=== PATIENT | male | born 1955 | race Caucasian/White ===

== ENCOUNTER 2025-03-18 10:09 | Outpatient (AMB) | payer MEDICARE, MEDICAID, SELFPAY ==
[2025-03-18 10:24] VITALS: BP 159/77; PULSE 84; RESP 18; TEMP 36.5; O2SAT 94; BMI 36.6
--- NOTE | 2025-03-18 10:24 | GSCOFFNT_ITS ---
Vital Signs - [facility] 03/18/25 10:24 Height 1.96 m Height Method Stated Weight 139.848 kg Weight Measurement Method Standing Scale BMI 36.6 BP 159/77 H Blood Pressure Source Automatic Cuff Blood Pressure Location Left Upper Arm Position Sitting Respiration 18 Pulse 84 Pulse Source Monitor Temp 97.7 F Temp Source Temporal Artery Scan Pulse Oximetry (%) 94 L Oxygen Delivery Method Room Air Med/Allergies Allergies & Medications Allergies No Known Allergies Allergy (Verified 03/18/25 10:25) Medication Reconciliation Levothyroxine * (SYNTHROID *) 175 mcg PO QDAY 6 months #300 tabs 10/31/23 [Rx Confirmed 03/18/25] atorvastatin 20 mg tablet 20 mg PO HS 90 days #90 tabs 10/31/23 [Rx Confirmed 03/18/25] blood sugar diagnostic (Contour Next Test Strips) #70 ea 10/31/23 [Rx Confirmed 03/18/25] blood-glucose meter (Contour Next EZ Meter kit) #1 ea 10/31/23 [Rx Confirmed 03/18/25] cholecalciferol (vitamin D3) 25 mcg (1,000 unit) tablet 2,000 iu PO QDAY 90 days #90 tabs 10/31/23 [Rx Confirmed 03/18/25] ferrous sulfate 325 mg (65 mg iron) tablet,delayed release 325 mg PO QOD 90 days #45 tabs 10/31/23 [Rx Confirmed 03/18/25] lancets 28 gauge (Comfort EZ Lancets) #100 ea 10/31/23 [Rx Confirmed 03/18/25] metformin 1,000 mg tablet 1,000 mg PO BID 90 days #180 tabs 10/31/23 [Rx Confirmed 03/18/25] tamsulosin 0.4 mg capsule 0.4 mg PO HS 90 days #90 caps 10/31/23 [Rx Confirmed 03/18/25] zinc sulfate 50 mg zinc (220 mg) capsule 220 mg (4.4 x 50 mg zinc (220 mg)) PO QDAY 90 days #396 caps 10/31/23 [Rx Confirmed 03/18/25] alprazolam 0.25 mg tablet 0.25 mg PO QDAY PRN anxiety #30 tabs 11/01/23 [Rx Confirmed 03/18/25] polyethylene glycol 3350 17 gram oral powder packet (HealthyLax) 17 g PO BID PRN constipation 30 days #60 ea 11/01/23 [Rx Confirmed 03/18/25] MA Intake Visit Data Collection New Patient or Established: New Patient (never been to [facility]) Seen by Clinical Staff ONLY (RN/ISABELLA): No Reason for Visit:: REFERRAL HERNIA Pain Present Currently: No Pain scale:: 0 PCP or OBGYN visit in last 3 months: Yes Hx Now: No Do You Feel Safe at Home: Yes Authorities Contacted: N/A Smoking Status Smoking Status: Never smoker Immunization / Flu Flu Vaccine in the Last 12 Months: No Flu Vaccine Exclusion Criteria: Refused by Patient Past Medical History Past Medical History NEUROLOGIC: Negative Neurological Disorders CARDIAC: Positive Cardiac Disorders; Negative Congestive Heart Failure RESPIRATORY: Negative Chronic Obstructive Pulmonary Disease (COPD) GASTROINTESTINAL: Negative Gastrointestinal Disorders GENITOURINARY: Negative Genitourinary Disorders or Renal Disease ENT: Negative Cataracts ENDOCRINE: Positive Endocrine Disorders and Diabetes Mellitus Type 2; Negative Diabetes Mellitus Type 1 HEMATOLOGIC: Negative Blood Disorders OTHER HISTORY: Negative Autoimmune Disease, Blood Transfusions, Anesthesia Reactions, MRSA, Clostridium Difficile or Cancer Family History FAMILY HISTORY: Positive Family Psychiatric Problems (syl said maybe) and Family Cancer; Negative Family Respiratory Disorders, Family Cardiac Disorders, Family Gastrointestinal Problems, Family Surgery or Family Anesthesia Reaction Surgical History SURGICAL: Negative Cardiac Surgery, Endocrine Surgery, Ear Surgery, Tympanostomy Tube, Eye Surgery, Nose Surgery, Oral Surgery, Tonsillectomy, Adenoidectomy, Cochlear Implant, Corneal Transplant, Throat Surgery, Tracheostomy, Nephrectomy or Joint Replacement Social History SMOKING STATUS: Smoking status: Never smoker ALCOHOL: Alcohol Intake: Former HOUSING: Housing: LIVES WITH: Lives With: Significant Other HPI HPI Narrative 69M referred for left inguinal hernia. Patient reports he has noticed it for the past year or so, he feels it has increased in size since then and is associated with discomfort of the scrotum as well as difficulty urinating. Patient reports he also has episodes during which his scrotum feels more firm, and at that time he has nausea although he has not had any vomiting. Patient underwent CT April 2024 which showed a large left inguinal hernia containing colon. Overall he does feel the symptoms are manageable for the time being. He has never had a colonoscopy PMH: HTN, hypothyroidism, DM 2 (patient states he does not check his sugar every day, is unsure of when his last A1c was completed but states that it was around 9), history of skin cancer, and pt reports being told he has sleep apnea but is unsure if he has had a sleep test and does not use CPAP PSH: Open cholecystectomy, patient also describes what sounds like a cystoscopy for hematuria Meds: Metformin, levothyroxine, olmesartan. Patient has been prescribed Jardiance but says that he is not currently taking it Allergies: NKDA Family history: No known malignancy ROS Review of Systems Narrative Review of Systems: Patient reports numbness and tingling in his fingers and toes, swelling of his ankles, constant waking up at night and difficulty lying flat Objective/Exam General General Appearance: alert, cooperative and well groomed Resp Respiratory exam: Absent respiratory distress exam: Present other (no abnormalities of the right inguinal region. the left scrotum is grossly enlarged, with mild erythema but no fluctuance or tenderness) Assessment & Plan Diagnosis / Problem List (1) Inguinal hernia of left side without obstruction or gangrene: Status: Acute Assessment & Plan: 69M with HTN, DMII, hypothyroidism and possible SHAWANDA presenting with a large left inguinoscrotal hernia. I explained that before undergoing surgery he should have his A1c evaluated as well as an echocardiogram as he has some symptoms that could be related to SHAWANDA/CHF. I provided a preoperative evaluation form which we will also fax to his PCP outlining these recommendations and will follow up in 4 weeks. 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 Patient 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 ([id number]) Patient Portal Questionaires Social History Living Situation History Housing: Housing Other:: Pt lives with significant other Tobacco History Smoking Status: Never smoker Alcohol History Alcohol Intake: Former Domestic Abuse History Do You Feel Safe at Home: Yes Review of Systems Report any current symptoms Only answer those that you have currently: Past Medical History Past Medical History Have you ever been diagnosed with any of the following: Cardiology Problems Congestive Heart Failure: No Respiratory Problems Chronic Obstructive Pulmonary Disease (COPD): No Genital/Urinary Problems Renal Disease: No Head,Eye,Nose,Throat Problems Cataracts: No Endocrine Problems Diabetes Mellitus Type 1: No Diabetes Mellitus Type 2: Yes Other Problems Autoimmune Disease: No Blood Transfusions: No Anesthesia Reactions: No MRSA: No Clostridium Difficile: No Cancer: No
== END 2025-03-18 11:10 | disposition home or self-care (01) ==
PROVIDERS: PCP Nurse Practitioner; Referring Provider Nurse Practitioner; Supervising Provider Surgery; Visit Provider Surgery
DX: K40.90 Unilateral inguinal hernia, without obstruction or gangrene, not specified as recurrent (principal); I10 Essential (primary) hypertension
CPT/HCPCS: 99204; G0463

== ENCOUNTER → 2025-05-17 | Outpatient (CLI) | payer MEDICARE, MEDICAID, SELFPAY ==
--- NOTE | 2025-05-17 13:30 | XR_ITS ---
Examination: Abdomen sonogram, Limited Date and time of exam: May 17, 2025, 1328 hours INDICATIONS: Diagnosis left inguinal hernia beginning 1 year ago with pain beginning 8 months ago Technique: Real-time shirley scale transabdominal sonographic images of the upper abdomen obtained. Findings: Left inguinal hernia 2.8 cm in dimension IMPRESSION: Left inguinal hernia 2.8 cm in dimension
== END | disposition home or self-care (01) ==
LOC: CDIM 13:15
PROVIDERS: PCP Internal Medicine; Referring Provider Internal Medicine; Visit Provider Internal Medicine
DX: K40.90 Unilateral inguinal hernia, without obstruction or gangrene, not specified as recurrent (principal)
CPT/HCPCS: 76705